=== PATIENT | female | born 1980 | race Caucasian/White ===

== ENCOUNTER 2018-05-10 15:46 | Outpatient (CLI) | payer MEDICAID | END 2018-05-10 23:59 | disposition home or self-care (01) | LOC: LAB 15:46 | PROVIDERS: ATTEND Nurse Practitioner Obstetrics & Gynecology | DX: O09.523 Supervision of elderly multigravida, third trimester (principal); R00.0 Tachycardia, unspecified | CPT/HCPCS: 93005 ==

== ENCOUNTER 2020-03-17 11:42 | Day surgery (SDC) | payer MEDICAID ==
[2020-03-10 12:28] LABS: BASOPHILS % (AUTO) 0.4 % (0-1); EOSINOPHILS # (AUTO) 0.1 X10'3 (0-0.9); EOSINOPHILS % (AUTO) 0.9 % (0-6); LYMPHOCYTES # (AUTO) 1.3 X10'3 (1.1-4.8); MEAN CORPUSCULAR HEMOGLOBIN 20.1 PG (27.0-31.0); MEAN CORPUSCULAR HGB CONC 30.3 g/dL (33.0-36.5); MEAN CORPUSCULAR VOLUME 66.5 FL (78-98); MEAN PLATELET VOLUME 6.8 FL (7.4-10.4); MONOCYTES # (AUTO) 0.6 X10'3 (0-0.9); MONOCYTES % (AUTO) 8.5 % (2-12); NEUTROPHILS # (AUTO) 4.7 X10'3 (1.8-7.7); NEUTROPHILS % (AUTO) 70.2 % (42-75); PRE OP HEMATOCRIT 31.4 % (35.0-45.0); PRE OP PLATELET COUNT 328 X10'3 (140-440); RED BLOOD COUNT 4.72 X10'6 (4.20-5.60); RED CELL DISTRIBUTION WIDTH 18.1 % (11.5-14.5)
[2020-03-10 12:30] LABS: PRE OP HEMOGLOBIN 9.5 g/dL (12.0-16.0)
[2020-03-10 12:33] LABS: HCG SERUM QL NEGATIVE
[2020-03-10 12:36] LABS: ALBUMIN 3.8 G/DL (3.4-5.0); ALBUMIN/GLOBULIN RATIO 0.9 (1.1-1.5); ALKALINE PHOSPHATASE 71 IU/L (46-116); BLOOD UREA NITROGEN 11 MG/DL (7-18); BUN/CREATININE RATIO 16.7 (6.6-38.0); CHLORIDE 106 MMOL/L (99-107); CREATININE 0.66 MG/DL (0.40-0.90); PRE OP ALT 47 U/L (30-65); PRE OP ANION GAP 9 (8-16); PRE OP AST 35 U/L (10-37); PRE OP BILIRUB, TOTAL 0.4 MG/DL (0.0-1.0); PRE OP GLUCOSE 101 MG/DL (70-104); PRE OP POTASSIUM 3.9 MMOL/L (3.4-5.1); PRE OP SODIUM 141 MMOL/L (135-145); TOTAL CARBON DIOXIDE 25.8 MMOL/L (24-32); eGFR > 90 ML/MIN
[2020-03-10 13:07] LABS: ANISOCYTOSIS 2+; MICROCYTOSIS 2+; PLATELET ESTIMATE NORMAL; POLYCHROMASIA FEW
[~2020-03-17] VITALS: Ht 170.2 cm; Wt 91.0 kg
[2020-03-17] VITALS (7 sets, daily range): BP systolic 122–153; BP diastolic 62–89
[~2020-03-17 11:42] MED LIST: VAL5T PO; ceFOXitin 2GM-NS 100mL ADDvant 100 ML IV ONE; ceFOXitin sod/dextrose 2g/50ml 50 ML IV ONE; famotidine 20mg tablet PO ONE; ringers solution, lacted 1,000 ML IV SCH
[2020-03-17] MEDS ORDERED: BUPIVAcaine/PF 2.5 mg/ml (0.25%) 30ml vial ONE (12:54)
[2020-03-17] MEDS ORDERED: dexamethasone sod phosphate 10mg/ml inj ONE (13:01)
[2020-03-17] MEDS ORDERED: sevoflurane 250ml liquid IH ONE (13:01)
[2020-03-17] MEDS ORDERED: neostigmine methylsulfate 1 MG/ML 10ml vial ONE (13:01)
[2020-03-17] MEDS ORDERED: fentaNYL/PF 50MCG/1 ML 2ML syringe ONE (13:02)
[2020-03-17] MEDS ORDERED: midazolam 2 mg/2 ml injection ONE (13:02)
[2020-03-17] MEDS ORDERED: propofol inj 20 ML IV ONE (13:03)
[2020-03-17] MEDS ORDERED: rocuronium 10mg/ml inj IV ONE (13:03)
[2020-03-17] MEDS ORDERED: LIDOcaine 2% (20mg/ml) 5ml vial ONE (13:03)
[2020-03-17] MEDS ORDERED: ondansetron/PF 4mg/2ml inj ONE (13:03)
[2020-03-17] MEDS ORDERED: BUPIVAcaine 0.25% w/Epi /PF 30ml vial ONE (13:25)
[2020-03-17] MEDS ORDERED: ringers solution, lacted 1,000 ML IV SCH (13:30)
[2020-03-17] MEDS ORDERED: labetalol 20mg/4ml (5mg/ml) syringe IV PRN (13:30)
[2020-03-17] MEDS ORDERED: morphine 2 MG/ML inj. syringe IV PRN (13:30)
[2020-03-17] MEDS ORDERED: ondansetron/PF 4mg/2ml inj IV PRN (13:30)
[2020-03-17] MEDS ORDERED: morphine 4 MG/ML inj SYRINge IV PRN (13:30)
[2020-03-17] MEDS ORDERED: hydrALAZINE 20mg/ml inj. IV PRN (13:30)
[2020-03-17] MEDS ORDERED: fentaNYL/PF 50MCG/1 ML 2ML syringe IV PRN ×2 (13:30)
[2020-03-17] MEDS ORDERED: glycopyrrolate 0.2mg/ml inj ONE (13:40)
--- NOTE | 2020-03-17 13:53 | NUR ---
Received from OR via , accompanied by Anesthesiologist DR REYES and report given by Anesthesiolgist. AWAKENS TO VOICE. VITALS STABLE. DRESSING DI. JOSE L PAIN. ABD SOFT.
--- NOTE | 2020-03-17 15:03 | NUR ---
ALERT AND ORIENTED. VITALS STABLE. NO BLEEDING NOTED. JOSE L PAIN. ABD SOFT. HOME WITH HER MOM AT THIS TIME.
== END 2020-03-17 15:03 | disposition home or self-care (01) ==
LOC: PAS 11:42
PROVIDERS: ATTEND Specialist
DX: N92.0 Excessive and frequent menstruation with regular cycle (principal); Z30.2 Encounter for sterilization; I47.1 Supraventricular tachycardia; D64.9 Anemia, unspecified; E66.9 Obesity, unspecified; Z68.31 Body mass index [BMI] 31.0-31.9, adult; Z79.899 Other long term (current) drug therapy; Z98.890 Other specified postprocedural states; Z20.828 Contact with and (suspected) exposure to other viral communicable diseases
CPT/HCPCS: 36415; 58563; 58670; 80053; 82948; 84703; 85025; 87635; 93005; J0694; J1100; J2001; J2250; J2405; J2704; J2710; J3010; J3490; J7120; 85008; A4264; A4355; A4618; A6258; A7000